=== PATIENT | female | born 1930 | race Caucasian/White ===

== ENCOUNTER → 2018-11-25 | Outpatient (CLI) | payer MEDICARE ==
--- NOTE | 2018-11-25 10:29 | PCVCIMAG ---
EXAM: BILATERAL LOWER EXTREMITY ARTERIAL DUPLEX INDICATION: Peripheral Arterial Disease. Leg pain. FINDINGS: Right Leg: Common femoral and profunda femoral arteries are patent. Superficial femoral artery and popliteal artery are patent. Mild stenosis proximal [place] anterior tibial artery is not flow-limiting. Peroneal artery is patent. Occlusion mid/distal posterior tibial artery. Left Leg: Common femoral and profunda femoral arteries are patent. Superficial femoral artery is patent. Increased systolic velocity 412 cm/s mid [place] popliteal artery consistent with 90% stenosis. Occlusion of the proximal/mid posterior tibial artery. The anterior tibial and peroneal arteries are patent. IMPRESSION: Occlusion mid/distal right posterior tibial artery. Otherwise no flow limiting stenosis in the right lower extremity. 90% stenosis mid [place] left popliteal artery. Occlusion proximal/mid left posterior tibial artery. LOC:[id number]
== END | disposition home or self-care (01) ==
LOC: PCVCIMAG 09:19
PROVIDERS: ATTEND Nuclear Medicine Nuclear Cardiology
DX: I65.23 Occlusion and stenosis of bilateral carotid arteries (principal); I10 Essential (primary) hypertension; L57.0 Actinic keratosis; E78.00 Pure hypercholesterolemia, unspecified
CPT/HCPCS: 93925; G0463